=== PATIENT | female | born 1970 | race African-American/Black ===

== ENCOUNTER → 2023-10-25 08:31 | Outpatient (REF) | payer OTHER, SELFPAY ==
[2023-10-25 09:19] LABS: % Basophils 0.4 % (0-2); % Eosinophils 2.4 % (0-6); % Immature Granulocytes 0.2 % (0-0.5); % Lymphocytes 60.2 % (20.5-51.1); % Monocytes 5.3 % (1.7-9.3); % Neutrophils 31.5 % (42.2-75.2); Absolute Eosinophils 0.1 10^3/uL (0-0.7); Absolute Monocytes 0.3 10^3/uL (0.1-0.6); Absolute Neutrophils 1.6 10^3/uL (1.4-6.5); Hemoglobin 12.6 g/dL (12.0-16.0); Mean Corp Hgb Conc. 33.2 g/dL (33.0-37.0); Mean Corpuscular Hgb 30.4 pg (27.0-31.0); Mean Corpuscular Volume 91.6 fL (81.0-99.0); Mean Platelet Volume 9.8 fL (7.4-10.4); Nucleated Red Blood Cells % 0 %; Platelet Count 322 10^3/uL (130-400); Red Blood Cell Count 4.15 10^6/uL (4.20-5.40); Red Cell Dist. Width 12.4 % (11.5-14.5); White Blood Cell Count 5.1 10^3/uL (4.8-10.8)
[2023-10-25 09:50] LABS: Microalbumin, Random Urine 1.1 mg/dl (0.6-1.7)
[2023-10-25 10:10] LABS: HDL Cholesterol 50 mg/dl; LDL Cholesterol, Calculated 77 mg/dl; Total Cholesterol 145 mg/dl (50-199); Triglyceride 91 mg/dl (10-149); Very Low Density Lipoprotein 18 mg/dl (0-30)
[2023-10-25 10:54] LABS: Glycohemoglobin (HgbA1c) 6.2 % (4.0-5.6)
== END ==
LOC: CLINIC 08:31
PROVIDERS: ATTENDING PHYSICIAN Family Medicine
DX: E23.6 Other disorders of pituitary gland (principal); E11.9 Type 2 diabetes mellitus without complications; D35.2 Benign neoplasm of pituitary gland
CPT/HCPCS: 36415; 80061; 82043; 83036; 85025

== ENCOUNTER → 2024-04-11 07:44 | Outpatient (REF) | payer OTHER, SELFPAY ==
[2024-04-11 09:34] LABS: Prolactin 4.5 ng/ml (3.0-18.6)
== END ==
LOC: REG 07:44
PROVIDERS: ATTENDING PHYSICIAN Family Medicine
DX: E11.9 Type 2 diabetes mellitus without complications (principal); D35.2 Benign neoplasm of pituitary gland
CPT/HCPCS: 36415; 83036; 84146

== ENCOUNTER → 2024-06-23 11:19 | Outpatient (REF) | payer OTHER, SELFPAY ==
[2024-06-25 13:12] LABS: Quantiferon Mitogen minus NIL 9.88 IU/mL; Quantiferon NIL 0.12 IU/mL; Quantiferon Plus TB1 minus NIL 0.01 IU/mL (<=0.34); Quantiferon Plus TB2 minus NIL 0.02 IU/mL (<=0.34); Quantiferon TB Gold Plus Negative (Negative)
== END ==
LOC: CLINIC 11:19
PROVIDERS: ATTENDING PHYSICIAN Nurse Practitioner Adult Health
DX: Z11.1 Encounter for screening for respiratory tuberculosis (principal)
CPT/HCPCS: 36415; 86480

== ENCOUNTER → 2024-11-07 08:16 | Outpatient (REF) | payer OTHER, SELFPAY ==
[2024-11-07 09:33] LABS: ALT (SGPT) 17 U/L (0-35); AST (SGOT) 37 U/L (14-36); Albumin 4.5 g/dl (3.5-5.0); Alkaline Phosphatase 95 U/L (38-126); Blood Urea Nitrogen 17 mg/dl (7-17); Calcium 9.4 mg/dl (8.4-10.2); Carbon Dioxide 27 mmol/L (22-30); Chloride 105 mmol/L (98-107); Glucose 103 mg/dl (70-99); HDL Cholesterol 52 mg/dl; LDL Cholesterol, Calculated 93 mg/dl; Potassium 4.9 mmol/L (3.5-5.1); Sodium 140 mmol/L (135-145); Total Bilirubin 0.5 mg/dl (0.2-1.3); Total Cholesterol 162 mg/dl (50-199); Total Protein 7.8 g/dl (6.3-8.2); Triglyceride 89 mg/dl (10-149); Very Low Density Lipoprotein 17 mg/dl (0-30); eGFR > 60.00
[2024-11-07 09:44] LABS: Prolactin 1.8 ng/ml (3.0-18.6)
== END ==
LOC: CLINIC 08:16
PROVIDERS: ATTENDING PHYSICIAN Family Medicine
DX: E11.9 Type 2 diabetes mellitus without complications (principal)
CPT/HCPCS: 80053; 80061; 83036; 84146

== ENCOUNTER 2024-12-13 07:36 | Emergency (ER) | payer OTHER, SELFPAY ==
[2024-12-13 07:39] VITALS: BP 162/92
--- NOTE | 2024-12-13 09:54 | ED.GENMED ---
History of Present Illness
General
Chief Complaint: Musculo-Skeletal Complaint
Source: patient and family
Time Seen by Provider: 12/13/24 09:40
History of Present Illness
History of Present Illness:
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
felt a pulling sensation and immediate tightening sensation within her lower back. She has been taking Motrin/ibuprofen for pain relief but states this has not really been helping her. She does note that her last dose was around 3 AM. Denies any
fevers, urinary or bowel incontinence, saddle anesthesias. Pain is otherwise constant, worse with movement and radiates down the lateral aspect of her thigh into her right knee.
Past History
Past History
ED Past Medical History: HTN and Hypercholesterolemia
ED Past Surgical History: Appendectomy and Gynecological
Social History
Tobacco: Non-smoker
Alcohol: None
Drug: None
Personal:
Living: with family
Employment: Employed
Review of Systems
Review of Systems
All Other Systems: ROS reviewed and negative except as documented in HPI and ROS
Phy Exam
Physical Exam
Physical Exam:
GENERAL: Alert , in no apparent distress but does appear uncomfortable at rest and pain worsens with attempted movement
HEAD: Normocephalic atraumatic
EYE: clear conjunctiva b/l
NECK: Supple
ENT: o/p clr, mmm.
ABDOMEN: Soft, without focal tenderness, no r/g, no cvat
BACK: Limited range of motion secondary to pain especially with forward bend, diffuse right paralumbar tenderness, no midline bony tenderness, no rashes
NEUROLOGICAL: Alert and oriented, no focal neuro deficits. Patellar deep tendon reflexes intact and equal bilaterally, sensation grossly intact and equal to light touch bilateral lower extremities
SKIN: Warm and dry, skin intact.
MUSCULOSKELETAL: No edema, well perfused. EHL intact bilaterally
PSYCH: Normal and appropriate interaction.
Scores
Heart Failure Risk
Heart Failure Risk Score: Not Applicable
Heart Score for Chest Pain Patients
STEMI patient?: Not applicable
Withdrawal Assessment of Alcohol
Withdrawal Assessment Completed?: Not applicable
Course
Orders/Labs/Results
Orders:
Orders
12/13/24 09:51
Acetaminophen [Tylenol] 1,000 mg PO NOW STA
Diazepam [Valium] 5 mg PO NOW STA
Lidocaine [Lidocaine 4% Patch] 1 patch TOPICAL NOW STA
Apply Lidocaine patch(s) to:: right lower back
CR Lumbar Spine Comp Min 4 Vw* Urgent
Comment:
Reason For Exam: right lower back pain
Vital Signs
Initial and Last Documented VS:
Initial Vital Signs
Temp Pulse Resp BP Pulse Ox
98.2 F 75 16 162/92 100
12/13/24 07:39 12/13/24 07:39 12/13/24 07:39 12/13/24 07:39 12/13/24 07:39
Last Documented Vital Signs
Temp Pulse Resp BP Pulse Ox
98.2 F 76 16 162/92 99
12/13/24 07:39 12/13/24 11:15 12/13/24 11:15 12/13/24 07:39 12/13/24 11:15
MDM/Problems Addressed
Differential Diagnosis Includes:
Lumbar strain, disc herniation/nerve impingement, spinal stenosis, less concern for renal/ureteral colic, no symptoms to suggest infectious etiology nor acute neurogenic claudication
MDM/Problems Addressed:
54-year-old female presenting to the emergency department for evaluation of right lower back pain that started Saturday afternoon while lifting a child. Pain in the right paralumbar region since. Minimal relief with Motrin/ibuprofen. Patient does
appear uncomfortable but is otherwise in no acute distress. Symptoms seem to be most suggestive of a lumbar strain especially given pain occurred while lifting. Will obtain an x-ray to further evaluate. Anticipate discharge home with continued
pain management
*Radiology
Radiology exam reviewed: preliminary read by ED provider (No acute fracture)
*Pulse Oximetry
Patient hypoxic: no
*Critical Care Note
Total Time (30-74mins, 75-104mins- exclusive of procedures): Not Applicable
Patient Management
Escalation/DeEscalation of care consider admission/obs:
X-ray of the lumbar spine did not show any fracture. There was some mild degenerative changes. Prescriptions for Valium and Medrol Dosepak sent to pharmacy. Sinew NSAIDs/Tylenol and topical agents as needed. Encouraged close follow-up with
primary care provider. Aware of return precautions to the emergency department.
ED Attending Note
-
Portions of this chart may have been created with voice recognition software.� Occasional wrong word or��sound alike� substitutions may have occurred due to the inherent limitations of voice recognition software.
Discharge Plan
Departure
Patient Disposition: Home (Routine Discharge)
Date of Disposition: 12/13/24
Time of Disposition: 10:55
Patient with high blood pressure during this ER visit?: Yes
Discharge Problem:
Low back pain
Instructions: Low back pain - Discharge instructions
Prescriptions:
New
diazepam [Valium] 5 mg tablet
5 mg PO BID PRN (Reason: muscle spasm) Qty: 8 0RF
methylprednisolone [Medrol (Chuy)] 4 mg tablets,dose pack
4 mg PO DIRECTED Qty: 21 0RF
No Action
ondansetron 4 mg tablet,disintegrating
4 mg PO Q8H PRN (Reason: nausea and vomiting) Qty: 14 0RF
albuterol sulfate [ProAir HFA] 90 mcg/actuation HFA aerosol inhaler
1 puff inhalation Q4HPRN PRN (Reason: shortness of breath) Qty: 8.5 0RF
Referrals:
UNKNOWN - PT DOES,NOT KNOW [Family Provider] -
Stand Alone Forms: Return to Work
Interventions
Interventions:
*Risk Screen - Suicide Last Done: 12/13/24 07:39
*General Assessment Last Done: 12/13/24 10:04
*Neglect/Abuse Screening Last Done: 12/13/24 07:39
*ED- Fall Risk Assessment Last Done: 12/13/24 11:15
*ED COVID-19 Vaccine History Last Done: 12/13/24 10:04
*Nursing Disposition Last Done: 12/13/24 11:15
ED-Musculoskeletal Assessment Last Done: 12/13/24 10:04
Discharge Date and Time
Discharge Date/Time: 12/13/24 11:16
Print Language: PASHTO
[2024-12-13] MEDS: VALIUM 5 MG PO (09:59)
[2024-12-13] MEDS: TYLENOL 1000 MG PO (09:59)
[2024-12-13] MEDS: LIDOCAINE 4% PATCH 1 PATCH TOPICAL (10:00)
== END 2024-12-13 11:16 | disposition home or self-care (01) ==
LOC: EMR 07:36
PROVIDERS: EMERGENCY PHYSICIAN Emergency Medicine
DX: M54.50 Low back pain, unspecified (principal); I10 Essential (primary) hypertension; E78.00 Pure hypercholesterolemia, unspecified; Z90.49 Acquired absence of other specified parts of digestive tract
CPT/HCPCS: 99283; 72110

== ENCOUNTER → 2025-05-22 08:24 | Outpatient (REF) | payer OTHER, SELFPAY ==
[2025-05-22 11:05] LABS: ALT (SGPT) 10 U/L (0-35); AST (SGOT) 22 U/L (14-36); Albumin 5.1 g/dl (3.5-5.0); Alkaline Phosphatase 78 U/L (38-126); Blood Urea Nitrogen 13 mg/dl (7-17); Calcium 9.6 mg/dl (8.4-10.2); Carbon Dioxide 29 mmol/L (22-30); Chloride 104 mmol/L (98-107); Glucose 97 mg/dl (70-99); Potassium 4.9 mmol/L (3.5-5.1); Sodium 141 mmol/L (135-145); Total Protein 8.5 g/dl (6.3-8.2); eGFR > 60.00
[2025-05-22 11:10] LABS: Microalbumin, Random Urine 2.2 mg/dl (0.6-1.7)
[2025-05-22 11:36] LABS: TSH 0.65 uIU/ml (0.47-4.68)
[2025-05-22 14:05] LABS: Glycohemoglobin (HgbA1c) 6.1 % (4.0-5.9)
== END ==
LOC: CLINIC 08:24
PROVIDERS: ATTENDING PHYSICIAN Family Medicine
DX: E11.9 Type 2 diabetes mellitus without complications (principal); E23.6 Other disorders of pituitary gland; E22.1 Hyperprolactinemia
CPT/HCPCS: 36415; 80053; 82043; 83036; 84146; 84439; 84443